=== PATIENT | male | born 1995 | race Caucasian/White ===

== ENCOUNTER 2016-12-17 13:03 | Emergency (ER) | payer OTHER ==
--- NOTE | 2016-12-17 14:43 | ED ---
HPI Febrile Illness - HPI Summary HPI Summary: Patient presents for evlauation of fever, URI sx, and body aches for the last 2 to 3 days. Went to the walk in clinic and directed to the ED. Drinking and eating well, but with fever. Took tylenol 650 mg last night but denies any recent other antipyretics or antibiotics. Uncertain of vaccination status. Some sick contacts at school. Denies chest pain, cough, abd or back pain. - History of Current Complaint Chief Complaint: EDFever Time Seen by Provider: 12/17/16 13:40 Hx Obtained From: Patient Onset/Duration: Started Days Ago - 3 Pain Intensity: 6 - Allergy/Home Medications Allergies/Adverse Reactions: Allergies Allergy/AdvReac Type Severity Reaction Status Date / Time No Known Allergies Allergy Verified 12/17/16 13:17 PMH/Surg Hx/FS Hx/Imm Hx Previously Healthy: Yes Infectious Disease History: No Infectious Disease History: Reports: Traveled Outside the in Last 30 Days - [place] - Social History Alcohol Use: Weekly Substance Use Type: Reports: None Smoking Status (MU): Former Smoker Review of Systems Positive: Fever All Other Systems Reviewed And Are Negative: Yes Physical Exam Triage Information Reviewed: Yes Vital Signs On Initial Exam: Initial Vitals Temp Pulse Resp BP Pulse Ox 99.5 F 100 18 120/63 97 12/17/16 13:12 12/17/16 13:12 12/17/16 13:12 12/17/16 13:12 12/17/16 13:12 Vital Signs Reviewed: Yes Appearance: Positive: Well-Appearing, No Pain Distress, Well-Nourished Skin: Positive: Warm, Skin Color Reflects Adequate Perfusion, Dry Head/Face: Positive: Normal Head/Face Inspection. Negative: Temporal Artery Tenderness, TMJ Tenderness Eyes: Positive: Normal, EOMI, SÁNCHEZ, Conjunctiva Clear ENT: Positive: Normal ENT inspection, Hearing grossly normal, Pharyngeal erythema, Nasal congestion, TMs normal, Tonsillar swelling. Negative: Nasal drainage, Tonsillar exudate, Trismus, Muffled/hoarse voice, Dental tenderness Neck: Positive: Supple, Nontender, No Lymphadenopathy Respiratory/Lung Sounds: Positive: Clear to Auscultation, Breath Sounds Present Cardiovascular: Positive: Normal, RRR, Pulses are Symmetrical in both Upper and Lower Extremities Abdomen Description: Positive: Nontender, No Organomegaly, Soft. Negative: CVA Tenderness (R), CVA Tenderness (L) Musculoskeletal: Positive: Normal, Strength/ROM Intact Neurological: Positive: Normal, Sensory/Motor Intact, Alert, Oriented to Person Place, Time, CN Intact II-III, Reflexes Intact, NV Bundle Intact Distally, Normal Gait. Negative: Babinski Bilateral, Cerebellar Dysfunction - Sarah Coma Scale Coma Scale Total: 15 Diagnostics - Vital Signs Vital Signs Temp Pulse Resp BP Pulse Ox 12/17/16 13:19 96 97 12/17/16 13:12 99.5 F 100 18 120/63 97 - Laboratory Lab Results: Lab Results 12/17/16 12/17/16 Range/Units 14:10 14:14 Influenza A (Rapid) Negative (Negative) Influenza B (Rapid) Negative (Negative) Group A Strep Rapid Negative (Negative) Lab Statement: Any lab studies that have been ordered have been reviewed, and results considered in the medical decision making process. Course/Dx - Febrile Illness Differential Diagnoses: Viremia, Other: - Primary concern for viral syndrome vs influenza. Nontoxic appearing. Clear lungs with low concern for pneumonia. Soft benign abodmen. No flank pain or behavior changes. No recent antipyretics or antibiotics to mask classic fever. Low concern for meningoencephaltis. - Diagnoses Provider Diagnoses: Viral syndrome Discharge - Discharge Plan Condition: Stable Disposition: HOME Patient Education Materials: Viral Syndrome (ED) Referrals: [facility] [place] [Primary Care Provider] -
[2016-12-17] MEDS ORDERED: Ibuprofen TAB* 600 MG PO ONE (14:44)
== END 2016-12-17 15:02 | disposition home or self-care (01) ==
LOC: ED 13:03
DX: B34.9 Viral infection, unspecified (principal); R50.9 Fever, unspecified; J06.9 Acute upper respiratory infection, unspecified; Z87.891 Personal history of nicotine dependence
CPT/HCPCS: 87502; 87651; 99285; A9270-GY